=== PATIENT | male | born 1945 | race Caucasian/White ===

== ENCOUNTER 2016-09-25 08:33 | Day surgery (SDC) | payer MEDICARE, OTHER ==
[~2016-09-25] VITALS: Ht 188 cm; Wt 112.0 kg
--- NOTE | ~2016-09-25 | OR ---
ADMIT: 09/25/2016 RM/LOC: [facility] MR#: [id number] [address] [address] AUBREEKALANI BARR [address] [place] [address] Operative/Delivery Room Report SEX: M AGE: 71 : 1945 SURGERY DATE: 09/25/2016 SURGEON: Chris Mcginnis MD PROCEDURE: Esophagogastroduodenoscopy with biopsies. PREOPERATIVE DIAGNOSES: Abdominal pain and bloating. POSTOPERATIVE DIAGNOSIS: Normal esophagogastroduodenoscopy. DESCRIPTION OF PROCEDURE: The patient was brought to the procedure room, placed in left lateral decubitus position. Informed consent had been obtained preoperatively. The risks and benefits including, but not limited to, perforation, sedation, bleeding were discussed with the patient and agreed upon. All questions were answered, alternatives discussed, the patient agreed. TIVA was GEOSPATIAL TECHNOLOGIST with propofol. Olympus videoendoscope, model GIF-XQ180 was passed to the level of cricopharyngeus using finger guidance. Then, using direct visualization, the scope was passed to the length of the esophagus where no abnormalities, esophageal mucosa, hiatal hernia, or esophageal varices were identified. The stomach was entered, air was insufflated, fundic pool was suctioned. Gastric mucosa inspected in its entirety and was found to be normal. Biopsies were taken in the antrum to rule out occult Helicobacter infection. The pyloric sphincter was round, small, opened, and closed appropriately. Duodenal bulb was entered, inspected through the second part, no abnormalities were identified. Biopsies were taken deep in the second part to rule out occult celiac disease. The patient tolerated the procedure well. No complications were expected. Blood loss was less than 1 mL. The patient reported that CAT scan had been obtained in June of this year, however, I was unable to find any records of this procedure [facility] or [place]. It is possible this was done at another institution. If he continues to have abdominal pain, I would consider doing an ultrasound of his abdomen to rule out possible gallbladder disease. Chris Mcginnis MD/ thomas JOB #: [id number] CC: Chris Mcginnis, Attending Physician Chema Andrade, Family Physician MD Chema Fan MD
--- NOTE | 2016-09-26 06:07 | OR ---
ADMIT: 09/25/2016 RM/LOC: [facility] MR#: [id number] [address] [address] CAROLANN KALANI Jolynn [address] [place] [address] Operative/Delivery Room Report SEX: M AGE: 71 : 1945 CORRECTION: 09/25/2016 1815 vdg SURGERY DATE: 09/25/2016 SURGEON: Chris Mcginnis MD PROCEDURE: Total colonoscopy with hot biopsy polypectomies. PREOPERATIVE DIAGNOSIS: Colon polyps. POSTOPERATIVE DIAGNOSES: 1. Extensive diverticulosis. 2. Right-sided colon polyps. DESCRIPTION OF PROCEDURE: The patient had been previously gastroscoped. Once again, informed consent had been obtained preoperatively. The risks and benefits including, but not limited to, perforation, sedation, bleeding were discussed with the patient and agreed upon. All questions were answered, alternatives discussed. The patient agreed. TIVA was provided by the HEAT REGULATOR with propofol. Anal inspection and digital examination revealed no abnormalities or obstructing masses. Prostate had been surgically removed. Olympus videoendoscope, model CF-H180AL, was inserted into rectum and advanced to the cecum without difficulty. The appendiceal orifice and ileocecal valve were identified. The valve could not be cannulated due to positions. There were multiple cecal and ascending colon polyps that were grasped with hot biopsy forceps, cauterized, and retrieved, some of these in piecemeal fashion. The remainder of the ascending and transverse were normal. In descending and sigmoid, there were multiple wide-mouthed diverticula present. Rectum was normal. Scope was retroflexed. The anal verge appeared normal. The patient tolerated the procedure well. No complications were expected. Blood loss was less than 1 mL. He will call me in one week for his biopsy report, sooner if he should have any postoperative problems. He will follow up with Dr. Padron for his abdominal distress and as mentioned, I would recommend possibly an ADMIT: 09/25/2016 RM/LOC: [facility] MR#: [id number] [address] [address] KALANI VUONG [address] [facility] [place] [address] Operative/Delivery Room Report SEX: M AGE: 71 : 1945 ultrasound of his abdomen for completeness. He will call me if he has any postoperative problems, in one week for the biopsy reports. I would recommend he have repeat colonoscopy in 5 years due to his history of adenomatous colon polyps, sooner if he should have any signs or symptoms in the interval. Chris Mcginnis MD/ thomas JOB #: [id number] CC: Chris Mcginnis, Attending Physician Chema Andrade, Family Physician MD Chema Fan MD CORRECTION: 09/25/2016 1815 vdg
== END 2016-09-25 11:47 | disposition home or self-care (01) ==
LOC: SSS 08:33
PROC: 0DBK8ZX Excision of Ascending Colon, Via Natural or Artificial Opening Endoscopic, Diagnostic (ICD-10-PCS; principal; 2016-09-25)
PROC: 0DBH8ZX Excision of Cecum, Via Natural or Artificial Opening Endoscopic, Diagnostic (ICD-10-PCS; principal; 2016-09-25)
PROC: 0DB68ZX Excision of Stomach, Via Natural or Artificial Opening Endoscopic, Diagnostic (ICD-10-PCS; principal; 2016-09-25)
DX: D12.0 Benign neoplasm of cecum (principal); K57.30 Diverticulosis of large intestine without perforation or abscess without bleeding; K29.50 Unspecified chronic gastritis without bleeding; I10 Essential (primary) hypertension; Z88.8 Allergy status to other drugs, medicaments and biological substances; Z90.49 Acquired absence of other specified parts of digestive tract; Z98.890 Other specified postprocedural states

== ENCOUNTER → 2016-09-30 | Outpatient (CLI) | payer MEDICARE, OTHER | END | disposition home or self-care (01) | LOC: RAD.S 08:42 | DX: R10.9 Unspecified abdominal pain (principal); C61 Malignant neoplasm of prostate; R61 Generalized hyperhidrosis; I10 Essential (primary) hypertension; K76.0 Fatty (change of) liver, not elsewhere classified; R16.0 Hepatomegaly, not elsewhere classified; K76.89 Other specified diseases of liver ==

== ENCOUNTER → 2016-10-14 | Outpatient (CLI) | payer MEDICARE, OTHER | END | disposition home or self-care (01) | LOC: RAD.S 07:40 | DX: C61 Malignant neoplasm of prostate (principal); I10 Essential (primary) hypertension; R61 Generalized hyperhidrosis ==